=== PATIENT | male | born 1970 | race African-American/Black ===

== ENCOUNTER 2018-11-02 20:47 | Emergency (ER) | payer MEDICAID ==
[~2018-11-02] VITALS: Ht 185.4 cm; Wt 79.4 kg
[~2018-11-02 20:47] MED LIST: PALI3TAB3
[2018-11-02 21:04] VITALS: BP 144/91
[2018-11-02] MEDS ORDERED: methylPREDNISolone SOD SUCC 125 MG/2 ML VL IM ONE (21:45)
[2018-11-02] MEDS ORDERED: KETOROLAC TROMETH 60MG/2ML VIAL IM ONE (21:45)
== END 2018-11-02 23:17 | disposition home or self-care (01) ==
LOC: ER 20:47 → EDBD 20:47 → ER 23:17
DX: M25.552 Pain in left hip (principal); F12.90 Cannabis use, unspecified, uncomplicated; Z88.8 Allergy status to other drugs, medicaments and biological substances; Z79.899 Other long term (current) drug therapy
CPT/HCPCS: 96372; 99283; J1885; J2930

== ENCOUNTER 2018-11-03 12:23 | Emergency (ER) | payer MEDICAID ==
[~2018-11-03] VITALS: Ht 185.4 cm; Wt 81.6 kg
[2018-11-03 12:30] VITALS: BP 147/88
[2018-11-03] MEDS ORDERED: KETOROLAC TROMETH 60MG/2ML VIAL IM ONE (17:00)
== END 2018-11-03 17:45 | disposition home or self-care (01) ==
LOC: EDBD 12:23 → EDSEX 12:23 → ER 12:23
DX: M54.5 Low back pain (principal); M25.552 Pain in left hip; F12.90 Cannabis use, unspecified, uncomplicated; Z88.8 Allergy status to other drugs, medicaments and biological substances; Z79.899 Other long term (current) drug therapy; Z87.442 Personal history of urinary calculi
CPT/HCPCS: 96372; 99283; J1885

== ENCOUNTER 2018-11-07 03:34 | Emergency (ER) | payer MEDICAID ==
[~2018-11-07] VITALS: Ht 190.5 cm; Wt 81.6 kg
[2018-11-07 03:39] VITALS: BP 134/76
[2018-11-07] MEDS ORDERED: KETOROLAC TROMETH 60MG/2ML VIAL IM ONE (06:45)
== END 2018-11-07 07:11 | disposition home or self-care (01) ==
LOC: ER 03:34 → EDBD 03:34 → ER 07:11
DX: M54.42 Lumbago with sciatica, left side (principal); F12.10 Cannabis abuse, uncomplicated; F41.9 Anxiety disorder, unspecified; F20.9 Schizophrenia, unspecified; Z87.442 Personal history of urinary calculi; Z88.8 Allergy status to other drugs, medicaments and biological substances
CPT/HCPCS: 73502; 96372; 99283; J1885

== ENCOUNTER 2018-11-10 02:27 | Emergency (ER) | payer MEDICAID ==
[~2018-11-10] VITALS: Ht 185.4 cm; Wt 83.9 kg
[2018-11-10 03:32] LABS: Basophils # (auto) 0 uL; Eosinophils # (auto) 0 uL; Eosinophils % (auto) 0.3 % (0.0-7.0); Lymphocytes # (auto) 1.2 uL; Monocytes # (auto) 0.6 uL; Red Cell Distribution Width 13.2 % (11.8-14.3)
[2018-11-10 03:34] LABS: Basophils % (auto) 0.2 % (0.0-2.0); Hematocrit 34.8 % (41.0-53.0); Hemoglobin 11.4 g/dL (13.5-17.5); Lymphocytes % (auto) 13.7 % (10.0-50.0); Mean Corpuscular Hemoglobin 26.7 pg (28.0-32.0); Mean Corpuscular Hgb Conc. 32.6 g/dL (32.0-36.0); Mean Corpuscular Volume 81.7 fL (80.0-100.0); Monocytes % (auto) 6.2 % (0.0-12.0); Neutrophils % (auto) 79.6 % (37.0-80.0); Platelet Count (auto) 127 10^3/uL (140-450); Red Blood Cells 4.26 10^6/uL (4.5-5.90); White Blood Cell 8.8 10^3/uL (4.4-10.8)
[2018-11-10 03:46] LABS: Albumin 3.8 g/dL (3.4-5.0); BUN/Creatinine Ratio 23.6; Calcium 8.2 mg/dL (8.5-10.1); Potassium 3.2 mmol/L (3.5-5.1)
[2018-11-10 03:49] LABS: Bilirubin, Total 0.3 mg/dL (0.2-1.0); Total Protein 7.3 g/dL (6.4-8.2)
[2018-11-10] MEDS ORDERED: ONDANSETRON HCL 4 MG/2 ML VIAL IV ONE (04:00)
[2018-11-10] MEDS ORDERED: HYDROmorphone HCL 2 MG/ML VL IV ONE (04:00)
[2018-11-10 04:17] LABS: Urine Amorphous Crystal FEW /hpf (None Seen); Urine Bacteria MOD /hpf (None Seen); Urine Blood Negative /uL (Negative); Urine Specific Gravity 1.018 (1.001-1.035); Urine WBC 7 /hpf (0 - 3)
[2018-11-10 04:43] LABS: Amylase 73 U/L (25-115); Lipase 84 U/L (73-393)
[2018-11-10 05:04] VITALS: BP 137/90
[2018-11-10 05:17] LABS: INR 0.9 (0.9-1.15); Partial Thromboplastin Time 26.3 sec (23.78-33.04); Prothrombin Time 9.7 sec (9.27-12.13)
[2018-11-10] MEDS ORDERED: POTASSIUM CHL 20 Meq TABLET PO ONE (06:15)
== END 2018-11-10 06:30 | disposition home or self-care (01) ==
LOC: EDBD 02:27 → ER 02:32
DX: N39.0 Urinary tract infection, site not specified (principal); F12.10 Cannabis abuse, uncomplicated; F41.9 Anxiety disorder, unspecified; F20.9 Schizophrenia, unspecified; Z87.442 Personal history of urinary calculi
CPT/HCPCS: 36415; 74176; 76705; 80053; 81001; 82150; 83690; 85025; 85610; 85730; 93005; 96374; 96375; 99284; J1170; J2405

== ENCOUNTER 2020-10-27 07:39 | Emergency (ER) | payer MEDICAID ==
[~2020-10-27] VITALS: Ht 182.9 cm; Wt 79.4 kg
[2020-10-27 08:54] LABS: Basophils # (auto) 0 10 ^3/uL (0-0.2); Basophils % (auto) 0.5 % (0.0-2.0); Eosinophils # (auto) 0 10 ^3/uL (0-0.8); Eosinophils % (auto) 0.1 % (0.0-7.0); Hematocrit 42.6 % (41.0-53.0); Neutrophils # (auto) 4.8 10 ^3/uL (1.6-8.6); Nucleated Red Blood Cells % 0.1 %; Red Blood Cells 5.27 10^6/uL (4.5-5.90)
[2020-10-27 08:56] LABS: Lymphocytes # (auto) 1.1 10 ^3/uL (0.4-5.4); Mean Corpuscular Hemoglobin 26.6 pg (28.0-32.0); Mean Corpuscular Hgb Conc. 32.8 g/dL (32.0-36.0); Mean Corpuscular Volume 80.9 fL (80.0-100.0); Monocytes # (auto) 0.5 10 ^3/uL (0-1.3); Monocytes % (auto) 7.2 % (0.0-12.0); Neutrophils % (auto) 75.2 % (37.0-80.0); Platelet Count (auto) 144 10^3/uL (140-450); White Blood Cell 6.4 10^3/uL (4.4-10.8)
[2020-10-27 09:08] LABS: Albumin 4.4 g/dL (3.4-5.0); Anion Gap 10 (5-15); Blood Urea Nitrogen 14 mg/dL (7-18); Calcium 9.1 mg/dL (8.5-10.1); Carbon Dioxide 23 mmol/L (21-32); Chloride 105 mmol/L (98-107); Glucose 116 mg/dL (74-106); Potassium 3.1 mmol/L (3.5-5.1); Sodium 138 mmol/L (136-145)
[2020-10-27 09:15] LABS: Alanine Aminotransferase 29 U/L (16-61); Alkaline Phosphatase 72 U/L (45-117); Aspartate Aminotransferase 16 U/L (15-37); BUN/Creatinine Ratio 13.6; Bilirubin, Total 1.3 mg/dL (0.2-1.0); GFR African American 99 mL/min; GFR Non-African American 82 mL/min; Total Protein 8.3 g/dL (6.4-8.2)
[2020-10-27] MEDS ORDERED: SODIUM CHLORIDE 0.9% 1,000 ML IV ONE (09:45)
[2020-10-27 11:02] LABS: Urine Bacteria NONE SEEN /hpf (None Seen); Urine Blood 1+ /uL (Negative); Urine Mucus MODERATE (None Seen); Urine Specific Gravity 1.031 (1.001-1.035); Urine WBC 5 /hpf (0 - 3)
[2020-10-27 13:31] VITALS: BP 130/77
== END 2020-10-27 13:43 | disposition home or self-care (01) ==
LOC: ER 07:39
DX: K52.9 Noninfective gastroenteritis and colitis, unspecified (principal); F12.10 Cannabis abuse, uncomplicated; N20.0 Calculus of kidney
CPT/HCPCS: 36415; 74176; 80053; 81001; 84484; 85025; 93005; 96360; 99285; J7030

== ENCOUNTER 2022-05-09 21:35 | Emergency (ER) | payer MEDICAID ==
[~2022-05-09] VITALS: Ht 185.4 cm; Wt 81.6 kg
[~2022-05-09 21:35] MED LIST changes: +PALI3TAB; -PALI3TAB3
[2022-05-09 23:31] LABS: Basophils # (auto) 0 10 ^3/uL (0-0.2); Basophils % (auto) 0.5 % (0.0-2.0); Eosinophils # (auto) 0 10 ^3/uL (0-0.8); Eosinophils % (auto) 0.5 % (0.0-7.0); Hematocrit 39.4 % (41.0-53.0); Hemoglobin 13.1 g/dL (13.5-17.5); Lymphocytes # (auto) 1.1 10 ^3/uL (0.4-5.4); Lymphocytes % (auto) 32.9 % (10.0-50.0); Mean Corpuscular Hemoglobin 27.3 pg (28.0-32.0); Mean Corpuscular Hgb Conc. 33.2 g/dL (32.0-36.0); Mean Corpuscular Volume 82.2 fL (80.0-100.0); Monocytes # (auto) 0.4 10 ^3/uL (0-1.3); Monocytes % (auto) 11.4 % (0.0-12.0); Neutrophils # (auto) 1.8 10 ^3/uL (1.6-8.6); Neutrophils % (auto) 54.7 % (37.0-80.0); Nucleated Red Blood Cells % 0.1 %; Red Blood Cells 4.79 10^6/uL (4.5-5.90); Red Cell Distribution Width 13.6 % (11.8-14.3); White Blood Cell 3.3 10^3/uL (4.4-10.8)
[2022-05-09 23:52] LABS: Albumin 3.4 g/dL (3.4-5.0); Calcium 8.7 mg/dL (8.5-10.1); Potassium 3.3 mmol/L (3.5-5.1)
[2022-05-09 23:55] LABS: BUN/Creatinine Ratio 15.7
[2022-05-09 23:58] LABS: Bilirubin, Total 0.4 mg/dL (0.2-1.0); Total Protein 6.7 g/dL (6.4-8.2)
[2022-05-10 00:08] LABS: Urine Bacteria NONE SEEN /hpf (None Seen); Urine Blood Negative /uL (Negative); Urine Specific Gravity 1.018 (1.001-1.035); Urine WBC 3 /hpf (0 - 3)
[2022-05-10] MEDS ORDERED: ONDANSETRON HCL 4 MG/2 ML VIAL IV ONE (00:45)
[2022-05-10] MEDS ORDERED: HYDROmorphone HCL 2 MG/ML VL/or syr IV ONE (00:45)
[2022-05-10 03:51] VITALS: BP 136/82
[2022-05-10] MEDS ORDERED: ceFAZolin 1GM/50ML 50 ML IV ONE (04:00)
[2022-05-10] MEDS ORDERED: TETANUS-DIPTH-ACEL PERTUSSIS 0.5ML SYR Tdap IM ONE (04:00)
== END 2022-05-10 04:59 | disposition short-term general hospital (02) ==
LOC: EDBD 21:35 → ER 21:35
DX: S01.319A Laceration without foreign body of unspecified ear, initial encounter (principal); R55 Syncope and collapse; Z88.8 Allergy status to other drugs, medicaments and biological substances; Z87.442 Personal history of urinary calculi; W18.39XA Other fall on same level, initial encounter; Y93.89 Activity, other specified; Y92.89 Other specified places as the place of occurrence of the external cause; Y99.8 Other external cause status
CPT/HCPCS: 36415; 70450; 71045; 72125; 80053; 81001; 83735; 84484; 85025; 93005; 96374; 96375; 99285; J1170; J2405

== ENCOUNTER 2024-08-21 20:18 | Emergency (ER) | payer MEDICAID ==
[~2024-08-21] VITALS: Ht 185.4 cm; Wt 70.0 kg
[2024-08-21] MEDS: IBUPROFEN 800 MG TAB PO ONE (22:49)
[2024-08-21] MEDS: LIDOCAINE 1% HCL (LOCAL ANESTH.) INJ 20ML MDV ID ONE (23:02)
[2024-08-22 00:56] VITALS: BP 150/88; PULSE 72; RESP 18; TEMP 98; O2SAT 99
[2024-08-22] MEDS ORDERED: DOXY100C4 PO (00:58)
== END 2024-08-22 01:32 | disposition home or self-care (01) ==
LOC: ER 20:18
DX: L03.011 Cellulitis of right finger (principal); F41.9 Anxiety disorder, unspecified; F20.9 Schizophrenia, unspecified; F15.90 Other stimulant use, unspecified, uncomplicated; Z88.8 Allergy status to other drugs, medicaments and biological substances; Z79.899 Other long term (current) drug therapy
CPT/HCPCS: 26010